=== PATIENT | female | born 1985 | race Caucasian/White ===

== ENCOUNTER 2021-06-10 09:00 | Inpatient (IN) | payer OTHER ==
[2021-06-10] MEDS: DEXTROSE 5%-LACTATED RINGERS 1,000 ML IV SCH (10:00)
[2021-06-10 10:21] VITALS: BMI 33.9
[2021-06-10 10:55] LABS: BASO % 0.3 % (0-2.0); EOS % 0.7 % (0-4.5); HEMATOCRIT 33.9 % (32.4-45.2); HEMOGLOBIN 11.5 GM/dL (10.7-15.3); LYMPH % 16.9 % (8-40); MCH 29.1 pg (25.7-33.7); MCHC 34.1 g/dl (32.0-36.0); MEAN CELL VOLUME 85.4 fl (80-96); MEAN PLT VOLUME 8.7 fl (7.5-11.1); MONO % 5.5 % (3.8-10.2); NEUT % 76.6 % (42.8-82.8); PLATELET COUNT 266 10^3/uL (134-434); RBC 3.96 M/mm3 (3.60-5.2); RDW 13.9 % (11.6-15.6); WHITE BLOOD COUNT 10.2 K/mm3 (4.0-10.0)
[2021-06-10 11:00] LABS: INR 0.95 (0.83-1.09); PROTHROMBIN TIME (PATIENT) 10.9 SEC (9.7-13.0)
[2021-06-10] MEDS: OXYTOCIN 30 UNITS in 0.9% NS 30 UNIT/500 ML INFUS.BAG IVPB SCH (11:00)
[2021-06-10 11:03] LABS: ACTIVATED PTT 27.9 SECONDS (25.2-36.5)
[2021-06-10 11:09] LABS: CALCIUM 9.3 mg/dL (8.5-10.1)
[2021-06-10 11:11] LABS: BLOOD UREA NITROGEN 5.9 mg/dL (7-18)
[2021-06-10 11:13] LABS: CREATININE 0.5 mg/dL (0.55-1.3)
[2021-06-10] MEDS ORDERED: OXYTOCIN 30 UNITS in 0.9% NS 30 UNIT/500 ML INFUS.BAG IVPB ONE (11:13)
[2021-06-10] MEDS ORDERED: FENTANYL/BUPIVACAINE/NS/PF - PCEA - 50 ML DISP.SYRIN EP ONE ×2 (12:13→17:04)
[2021-06-10] MEDS ORDERED: BUPIVACAINE HCL/PF 0.25% (2.5MG/ML) 10 ML VIAL ONE (12:21)
[2021-06-10] MEDS: FENTANYL/BUPIVACAINE/NS/PF - PCEA - 50 ML DISP.SYRIN EP SCH (12:40)
[2021-06-10] MEDS ORDERED: NALOXONE HCL 0.4 MG/ML VIAL IVPUSH PRN (12:42)
[2021-06-10] MEDS ORDERED: ePHEDrine SULFATE 50 MG/1 ML AMPULE ONE (12:58)
[2021-06-10] MEDS ORDERED: OXYTOCIN 20 UNITS in 0.9% NS 20 UNIT/1,000 ML INFUS.BAG IV ONE (16:51)
[2021-06-10] MEDS ORDERED: METHYLERGONOVINE MALEATE 0.2 MG/1 ML AMP IM PRN (18:00)
[2021-06-10] MEDS ORDERED: BENZOCAINE 28 GM HEMORRHOIDAL OINTMENT TP PRN (18:00)
[2021-06-10] MEDS ORDERED: OXYTOCIN 20 UNITS in 0.9% NS 20 UNIT/1,000 ML INFUS.BAG IV SCH (18:00)
[2021-06-10] MEDS ORDERED: BISACODYL 10 MG SUPP.RECT RC PRN (18:00)
[2021-06-10] MEDS ORDERED: BENZOCAINE 20% 57 GM BOTTLE TP PRN (18:00)
[2021-06-10] MEDS ORDERED: WITCH HAZEL 50% (TUCKS) 40 PAD/JAR PAD TP PRN (18:00)
[2021-06-10] MEDS ORDERED: ACETAMINOPHEN 325 MG TABLET (FP) PO PRN (18:00)
[2021-06-10] MEDS: IBUPROFEN 600 MG TABLET (FP) PO PRN (20:12)
[2021-06-11] MEDS: oxyCODONE HCL 5 MG TABLET PO PRN ×2 (00:40→23:07)
[2021-06-11 08:35] LABS: BASO % 0.3 % (0-2.0); EOS % 0.5 % (0-4.5); HEMATOCRIT 32.2 % (32.4-45.2); HEMOGLOBIN 10.9 GM/dL (10.7-15.3); LYMPH % 11.4 % (8-40); MCHC 33.9 g/dl (32.0-36.0); MEAN CELL VOLUME 85.5 fl (80-96); MEAN PLT VOLUME 8.9 fl (7.5-11.1); MONO % 5.7 % (3.8-10.2); NEUT % 82.1 % (42.8-82.8); PLATELET COUNT 217 10^3/uL (134-434); RBC 3.77 M/mm3 (3.60-5.2); RDW 14.2 % (11.6-15.6); WHITE BLOOD COUNT 14.9 K/mm3 (4.0-10.0)
[2021-06-11] MEDS: IBUPROFEN 600 MG TABLET (FP) PO PRN ×2 (08:45→14:18)
[2021-06-11] MEDS: PRENATAL VITAMINS W/ FOLIC ACID TABLET (FP) PO SCH (10:07)
[2021-06-11] MEDS: OXYTOCIN 30 UNITS in 0.9% NS 30 UNIT/500 ML INFUS.BAG IVPB SCH (15:48)
[2021-06-11] MEDS: DEXTROSE 5%-LACTATED RINGERS 1,000 ML IV SCH (15:48)
[2021-06-11] MEDS ORDERED: SENNOSIDES/DOCUSATE COMBO (SENNA PLUS) TABLET (UD) PO PRN (22:00)
[2021-06-11] MEDS: FENTANYL/BUPIVACAINE/NS/PF - PCEA - 50 ML DISP.SYRIN EP SCH (23:03)
[2021-06-12] MEDS: PRENATAL VITAMINS W/ FOLIC ACID TABLET (FP) PO SCH (09:06)
[2021-06-12] MEDS: IBUPROFEN 600 MG TABLET (FP) PO PRN (09:06)
[2021-06-12 10:38] VITALS: BP 135/73; PULSE 82; TEMP 98.7
== END 2021-06-12 12:20 | disposition home or self-care (01) | DRG 807 ==
LOC: JLDR 09:00 → J3W 19:46
PROVIDERS: ADMIT Obstetrics & Gynecology; ATTEND Obstetrics & Gynecology
PROC: 10E0XZZ Delivery of Products of Conception, External Approach (ICD-10-PCS; principal; 2021-06-10)
PROC: 0HQ9XZZ Repair Perineum Skin, External Approach (ICD-10-PCS; 2021-06-10)
PROC: 0W8NXZZ Division of Female Perineum, External Approach (ICD-10-PCS; 2021-06-10)
DX: O70.0 First degree perineal laceration during delivery (principal); Z37.0 Single live birth; O48.0 Post-term pregnancy; Z3A.40 40 weeks gestation of pregnancy
CPT/HCPCS: 36415; 59409; 80048; 85025; 85610; 85730; 86780; 86850; 86900; 86901; C9803-CS; U0003; U0005

== ENCOUNTER 2023-05-27 03:16 | Emergency (ER) | payer OTHER ==
[2023-05-27 03:25] VITALS: BP 110/70; PULSE 74; RESP 18; TEMP 98.4; BMI 34.3
== END 2023-05-27 03:56 | disposition home or self-care (01) ==
LOC: JER 03:16
DX: O09.523 Supervision of elderly multigravida, third trimester (principal); O21.9 Vomiting of pregnancy, unspecified; O99.893 Other specified diseases and conditions complicating puerperium; R10.9 Unspecified abdominal pain; Z3A.37 37 weeks gestation of pregnancy; Z20.822 Contact with and (suspected) exposure to COVID-19
CPT/HCPCS: 0241U-QW; 99283-25

== ENCOUNTER 2023-06-08 07:05 | Inpatient (IN) | payer OTHER ==
[2023-06-08] MEDS ORDERED: BUTORPHANOL TARTRATE 2 MG/ML VIAL IVPB ONE (08:02)
[2023-06-08] MEDS ORDERED: PROMETHAZINE HCL 25 MG/1 ML VIAL IVPB ONE (08:02)
[2023-06-08] MEDS: ELECTROLYTE-148 SOLN 1,000 ML IV SCH (08:20)
[2023-06-08] MEDS ORDERED: OXYTOCIN 30 UNITS in 0.9% NS 30 UNIT/500 ML INFUS.BAG IVPB ONE (08:30)
[2023-06-08] MEDS: OXYTOCIN 30 UNITS in 0.9% NS 30 UNIT/500 ML INFUS.BAG IVPB SCH (08:35)
[2023-06-08 08:45] LABS: BASO % 0.3 % (0-2.0); EOS % 0.7 % (0-4.5); HEMATOCRIT 31.9 % (32.4-45.2); HEMOGLOBIN 11.2 GM/dL (10.7-15.3); LYMPH % 17.7 % (8-40); MCH 28.6 pg (25.7-33.7); MEAN CELL VOLUME 81.7 fl (80-96); MEAN PLT VOLUME 8.4 fl (7.5-11.1); MONO % 7.2 % (3.8-10.2); NEUT % 74.1 % (42.8-82.8); PLATELET COUNT 276 10^3/uL (134-434); WHITE BLOOD COUNT 10.7 K/mm3 (4.0-10.0)
[2023-06-08 08:53] LABS: INR 0.97 (0.83-1.09); PROTHROMBIN TIME (PATIENT) 11.2 SEC (9.7-13.0)
[2023-06-08 08:57] LABS: ACTIVATED PTT 24.7 SECONDS (25.2-36.5); BLOOD UREA NITROGEN 6.6 mg/dL (7-18); CALCIUM 8.4 mg/dL (8.5-10.1)
[2023-06-08 09:02] LABS: CREATININE 0.5 mg/dL (0.55-1.3)
[2023-06-08 09:13] VITALS: BMI 33.9
[2023-06-08 12:07] LABS: HIV INTERPRETATION NEGATIVE (NEGATIVE)
[2023-06-08] MEDS ORDERED: FENTANYL/BUPIVACAINE/NS/PF - PCEA - 50 ML DISP.SYRIN EP ONE (14:03)
[2023-06-08] MEDS: FENTANYL/BUPIVACAINE/NS/PF - PCEA - 50 ML DISP.SYRIN EP SCH (14:30)
[2023-06-08] MEDS ORDERED: NALOXONE HCL 0.4 MG/ML VIAL IVPUSH PRN (15:36)
[2023-06-08] MEDS ORDERED: OXYTOCIN 20 UNITS in 0.9% NS 20 UNIT/1,000 ML INFUS.BAG IV ONE (16:27)
[2023-06-08] MEDS: OXYTOCIN 20 UNITS in 0.9% NS 20 UNIT/1,000 ML INFUS.BAG IV SCH (16:45)
[2023-06-08] MEDS ORDERED: BISACODYL 10 MG SUPP.RECT RC PRN (17:12)
[2023-06-08] MEDS ORDERED: METHYLERGONOVINE MALEATE 0.2 MG/1 ML AMP IM PRN (17:12)
[2023-06-08] MEDS ORDERED: BENZOCAINE 20% 57 GM BOTTLE TP PRN (17:12)
[2023-06-08] MEDS ORDERED: ACETAMINOPHEN 325 MG TABLET (FP) PO PRN (17:12)
[2023-06-08] MEDS ORDERED: BENZOCAINE 28 GM HEMORRHOIDAL OINTMENT TP PRN (17:12)
[2023-06-08] MEDS ORDERED: WITCH HAZEL 50% (TUCKS) 40 PAD/JAR PAD TP PRN (17:12)
[2023-06-08 20:16] VITALS: RESP 18
[2023-06-09] MEDS: oxyCODONE HCL 5 MG TABLET PO PRN (00:10)
[2023-06-09 08:22] LABS: BASO % 0.4 % (0-2.0); EOS % 0.5 % (0-4.5); HEMATOCRIT 30.1 % (32.4-45.2); HEMOGLOBIN 10.1 GM/dL (10.7-15.3); LYMPH % 14.3 % (8-40); MCH 27.9 pg (25.7-33.7); MCHC 33.5 g/dl (32.0-36.0); MEAN CELL VOLUME 83.1 fl (80-96); MEAN PLT VOLUME 8.5 fl (7.5-11.1); MONO % 5.7 % (3.8-10.2); NEUT % 79.1 % (42.8-82.8); PLATELET COUNT 254 10^3/uL (134-434); RBC 3.63 M/mm3 (3.60-5.2); RDW 13.1 % (11.6-15.6); WHITE BLOOD COUNT 15.6 K/mm3 (4.0-10.0)
[2023-06-09] MEDS: PRENATAL VITAMINS W/ FOLIC ACID TABLET (FP) PO SCH (09:37)
[2023-06-09] MEDS: IBUPROFEN 600 MG TABLET (FP) PO PRN (09:37)
[2023-06-09] MEDS: FERROUS SO4 325 MG TABLET (FP) PO SCH (09:37)
[2023-06-09] MEDS: SENNOSIDES/DOCUSATE COMBO (SENNA PLUS) TABLET (UD) PO PRN (21:58)
[2023-06-09 22:31] VITALS: TEMP 97.8
[2023-06-10 09:29] VITALS: BP 114/72; PULSE 83
== END 2023-06-10 12:05 | disposition home or self-care (01) | DRG 807 ==
LOC: JLDR 07:05 → J3W 20:47
PROVIDERS: ADMIT Obstetrics & Gynecology; ATTEND Obstetrics & Gynecology
PROC: 0HQ9XZZ Repair Perineum Skin, External Approach (ICD-10-PCS; principal; 2023-06-08)
PROC: 10E0XZZ Delivery of Products of Conception, External Approach (ICD-10-PCS; 2023-06-08)
DX: O70.0 First degree perineal laceration during delivery (principal); Z37.0 Single live birth; Z3A.39 39 weeks gestation of pregnancy
CPT/HCPCS: 36415; 80048; 85025; 85610; 85730; 86780; 86850; 86900; 86901; 87389